=== PATIENT | female | born 1930 | race Caucasian/White ===

== ENCOUNTER 2016-11-23 13:33 | Emergency (ER) | payer OTHER, MEDICARE ==
[~2016-11-23] VITALS: Ht 154.9 cm; Wt 85.0 kg
[~2016-11-23 13:33] MED LIST: ADVAIR 250/501 DISK IH; ASPIR-LOW81 MG PO; ATARAX10 MG PO; Advair HFA 115/21 IH; Aspirin Chewable PO; Benadryl PO; CALCIUM + D3 E1 EACH PO; CLEOCIN300 MG PO; Colace PO; Coumadin dosing per PO; DAILY VALUE1 EACH PO; DELTASONE10 MG PO; DUONEB 2.5-0.5 M3 ML IH; DUONEB3 ML IH; DuoNeb IH; Elavil PO; FERROUS SULFAT325 MG PO; FLEXERIL10 MG PO; FLONASE16 G1 BOTH NARES; FOSAMAX70 MG PO; Flexeril PO; Fosamax PO; GLIPIZIDE5 MG PO; HUMULIN R100 UNITS/ IM; Humibid LA,Mucinex PO; IMODIUM MS REL1 EACH PO; Imdur PO; K-DUR10 ME2 PO; KLOR-CON 1010 ME1 PO; KLOR-CON M1010 MEQ PO; LANTUS 10100 UNITS/ SC; LANTUS 3 M100 UNITS/ SC; LANTUS100 UNIT/1 SQ; LASIX40 MG PO; LOSARTAN POTAS100 MG PO; LOVENOX40 MG/0.4 SC; LOW DOSE ASPIRI81 M1 PO; Lasix PO; Lovenox SC; MACROBID100 MG PO; MOTRIN800 MG PO; MYCOSTATIN 100,60 ML PO; Maalox, Mylanta PO; NOVOLOG 10100 UNITS/ SC; NOVOLOG PE100 UNITS/ SC; OMEPRAZOLE20 MG PO; Oscal 500 w/Vitamin PO; POLYETHYLENE GL17 GM PO; PREDNISONE10 MG PO; PREDNISONE20 MG PO; PREDNISONE50 MG PO; PRILOSEC20 MG PO; PROMETHAZINE HC25 M1 PO; Percocet 5/325,Endoc PO; Protonix PO; RESTASIS 01 DROP/0.4 BOTH EYES; Restasis 0.05% BOTH EYES; SENOKOT S,PE1 TABLET PO; SINGULAIR10 MG PO; Senokot S,Pericolace PO; Singulair PO; THEO-DUR,THEOC300 MG PO; THEOPHYLLINE A300 M1 PO; TRAMADOL HCL50 MG PO; TYLENOL REGULA325 MG PO; Theragran-M,Centrum, PO; Tylenol PR; Tylenol Regular Stre PO; VALACYCLOVIR500 MG PO; VANCOMYCIN HCL1 GM IV; Vitamin-E PO; ZESTRIL,PRINIVI20 MG PO; ZITHROMAX500 MG PO; ZOLPIDEM TARTRAT5 MG PO; Zestril,Prinivil PO; oxyCODONE PO
[2016-11-23 14:40] LABS: HEMATOCRIT 35.6 % (36.0-46.0); MCH 30.9 PG (29.0-34.0); MCHC 32.9 G/DL (30.0-36.0); MCV 93.9 FL (83-99); MEAN PLAT.VOLUME 9.7 uM^3 (9.5-12.4); PLATELET COUNT 218 K/uL (156-360); RBC DIS.WIDTH-CV 13.6 % (11.8-14.6); RBC DIS.WIDTH-SD 44.9 % (39-53); RED BLOOD COUNT 3.79 M/uL (3.80-5.20); WHITE BLOOD COUNT 8.1 K/uL (4.1-10.2)
[2016-11-23 14:48] LABS: CHLORIDE 107 mEq/L (99-109); POTASSIUM 4.2 mEq/L (3.7-5.4); SODIUM 142 mEq/L (136-147)
[2016-11-23 14:50] LABS: GLUCOSE 90 mg/dL (70-99)
[2016-11-23 14:51] LABS: ANION GAP 11 MEQ/L (2-14)
[2016-11-23 14:54] LABS: GFR ESTIMATE (CALCULATED) 38 mL/min/
[2016-11-23 14:55] LABS: UREA NITROGEN (BUN) 26 mg/dL (9-23)
[2016-11-23 14:56] LABS: D-DIMER ELISA 0.29 mg/L FEU (< 0.57)
[2016-11-23] MEDS ORDERED: ULTRAM50 MG PO (15:24)
[2016-11-23] MEDS ORDERED: CLEOCIN300 MG PO (15:24)
[2016-11-23 15:39] VITALS: BP 138/58
== END 2016-11-23 15:50 | disposition home or self-care (01) ==
LOC: EME 13:33
PROVIDERS: Nurse Practitioner Family
DX: L03.116 Cellulitis of left lower limb (principal); E11.9 Type 2 diabetes mellitus without complications; J44.9 Chronic obstructive pulmonary disease, unspecified; I10 Essential (primary) hypertension; K21.9 Gastro-esophageal reflux disease without esophagitis; Z85.828 Personal history of other malignant neoplasm of skin; Z79.4 Long term (current) use of insulin; Z79.82 Long term (current) use of aspirin; Z87.891 Personal history of nicotine dependence
CPT/HCPCS: 80048; 83605; 85027; 85379; 87040; 87070; 87075; 87077; 87186; 87205; 99281; 99284; J7030

== ENCOUNTER 2017-07-13 21:16 | Observation (INO) | payer OTHER, MEDICARE ==
[~2017-07-13] VITALS: Ht 154.9 cm; Wt 86.3 kg
[~2017-07-13 21:16] MED LIST changes: +ULTRAM50 MG PO
[2017-07-13 23:23] LABS: HEMATOCRIT 34.7 % (36.0-46.0); MCHC 32.6 G/DL (30.0-36.0); MCV 95.1 FL (83-99); MEAN PLAT.VOLUME 9.6 uM^3 (9.5-12.4); PLATELET COUNT 198 K/uL (156-360); RBC DIS.WIDTH-CV 13.3 % (11.8-14.6); RBC DIS.WIDTH-SD 46.7 % (39-53); RED BLOOD COUNT 3.65 M/uL (3.80-5.20); WHITE BLOOD COUNT 8.2 K/uL (4.1-10.2)
[2017-07-13 23:29] LABS: INTER. NORMALIZED RATIO 1.1; PROTHROMBIN TIME 12.6 SEC (10.2-12.9)
[2017-07-13 23:31] LABS: PTT 27.4 SEC (25-37)
[2017-07-13 23:44] LABS: TROP-I INTERPRETATION NEGATIVE; TROPONIN-I < 0.01 ng/mL (0.0-0.30)
[2017-07-13 23:45] LABS: CHLORIDE 103 mEq/L (99-109); POTASSIUM 4.3 mEq/L (3.7-5.4); SODIUM 136 mEq/L (136-147)
[2017-07-13 23:47] LABS: GLUCOSE 89 mg/dL (70-99)
[2017-07-13 23:49] LABS: ANION GAP 10 MEQ/L (2-14); TOTAL BILIRUBIN 0.3 mg/dL (0.0-1.0)
[2017-07-13 23:51] LABS: ALKALINE PHOSPHATASE 59 IU/L (3-129); GFR ESTIMATE (CALCULATED) 45 mL/min/
[2017-07-13 23:52] LABS: UREA NITROGEN (BUN) 16 mg/dL (9-23)
[2017-07-13 23:54] LABS: LIPASE 7 U/L (1.0-51.0)
[2017-07-14 01:56] LABS: ADD MIUA? YES; BILIRUBIN NEGATIVE; BLOOD NEGATIVE; COLOR YELLOW ((YELLOW)); GLUCOSE (STRIP) NEGATIVE; KETONES NEGATIVE; LEUKOCYTES SMALL; NITRITE NEGATIVE; PROTEIN (STRIP) NEGATIVE; SPECIFIC GRAVITY 1.011 (1.000-1.030); UROBILINOGEN 0.2 MG/DL (0.2-1.0)
[2017-07-14 02:11] LABS: BACTERIA RARE /HPF; EPITHELIAL CELLS RARE /HPF; MUCUS NONE SEEN /LPF; RED BLOOD CELLS 0-5 /HPF (0-5); UCUL ADDED? YES
[2017-07-14 03:34] VITALS: BP 160/70
[2017-07-14 05:55] LABS: ALKALINE PHOSPHATASE 53 IU/L (3-129); ANION GAP 8 MEQ/L (2-14); CHLORIDE 107 MEQ/L (99-109); GFR ESTIMATE (CALCULATED) 50 mL/min/; GLUCOSE 78 mg/dL (70-99); POTASSIUM 4.9 MEQ/L (3.7-5.4); SAMPLE HEMOLYSIS CHECK 0; SAMPLE ICTERIC CHECK 0; SAMPLE LIPEMIA CHECK 0; SODIUM 137 MEQ/L (136-147); TOTAL BILIRUBIN 0.4 MG/DL (0.0-1.0); UREA NITROGEN (BUN) 14 mg/dL (9-23)
[2017-07-14 06:00] LABS: TROP-I INTERPRETATION NEGATIVE; TROPONIN-I 0.02 ng/mL (0.0-0.30)
[2017-07-14 06:30] LABS: HEMATOCRIT 36.4 % (36.0-46.0); MCH 32.2 PG (29.0-34.0); MCHC 33.5 G/DL (30.0-36.0); MEAN PLAT.VOLUME 10.6 uM^3 (9.5-12.4); PLATELET COUNT 168 K/uL (156-360); RBC DIS.WIDTH-CV 13.6 % (11.8-14.6); RBC DIS.WIDTH-SD 48.1 % (39-53); RED BLOOD COUNT 3.79 M/uL (3.80-5.20); WHITE BLOOD COUNT 7.8 K/uL (4.1-10.2)
[2017-07-14 06:33] LABS: POINT-OF-CARE METER ID UU13113700
[2017-07-14 08:30] VITALS: BP 148/63
[2017-07-14] MEDS ORDERED: LASIX40 MG PO (10:10)
[2017-07-14] MEDS ORDERED: CALCIUM 500 +1 EACH PO (10:12)
[2017-07-14] MEDS ORDERED: VITAMIN B-6100 MG PO (10:12)
[2017-07-14] MEDS ORDERED: ASCORBIC ACID100 MG PO (10:13)
[2017-07-14] MEDS ORDERED: VITAMIN E100 UNIT PO (10:13)
[2017-07-14] MEDS ORDERED: COMPLETE SENIO1 EACH PO (10:14)
[2017-07-14] MEDS ORDERED: ARTIFICIAL TEAR15 M1 BOTH EYES (10:15)
[2017-07-14] MEDS ORDERED: ODOR FREE GARL1 EAC1 PO (10:15)
[2017-07-14] MEDS ORDERED: COZAAR100 MG PO (10:16)
[2017-07-14] MEDS ORDERED: BACTROBAN OINTM22 GM TP (10:22)
[2017-07-14] MEDS ORDERED: SYMBICORT60 INHALAT IH (10:27)
[2017-07-14 11:53] VITALS: BP 139/62
[2017-07-14 12:10] LABS: TROP-I INTERPRETATION NEGATIVE; TROPONIN-I < 0.01 ng/mL (0.0-0.30)
[2017-07-14 12:34] LABS: POINT-OF-CARE METER ID UU13113700
== END 2017-07-14 16:17 | disposition home or self-care (01) ==
LOC: EME 21:16 → ENPENDDIS 07-14 → EDOF 07-14 02:14 → ENRESERV 07-14 02:16 → 5WEST 07-14 03:21
PROVIDERS: Emergency Medicine; Internal Medicine
DX: K52.9 Noninfective gastroenteritis and colitis, unspecified (principal); R07.89 Other chest pain; K21.9 Gastro-esophageal reflux disease without esophagitis; E11.9 Type 2 diabetes mellitus without complications; J44.9 Chronic obstructive pulmonary disease, unspecified; I10 Essential (primary) hypertension; I44.0 Atrioventricular block, first degree; Z79.4 Long term (current) use of insulin; Z85.828 Personal history of other malignant neoplasm of skin; Z92.3 Personal history of irradiation; Z90.710 Acquired absence of both cervix and uterus; Z87.891 Personal history of nicotine dependence; Z88.0 Allergy status to penicillin; Z88.2 Allergy status to sulfonamides; Z88.8 Allergy status to other drugs, medicaments and biological substances
CPT/HCPCS: 74177; 80053; 81003; 82948; 83605; 83630; 83690; 84484; 85027; 85610; 85730; 87086; 87177; 93005; 94640; 99202; 99281; 99285; G0378; G8978 GP CH; G8979 GP CH; G8980 GP CH; G8987 GO CH; G8988 GO CH; G8989 GO CH; J1644; J2405; J7030; S0028

== ENCOUNTER 2017-07-19 17:33 | Emergency (ER) | payer OTHER, MEDICARE ==
[~2017-07-19] VITALS: Ht 154.9 cm; Wt 82.2 kg
[~2017-07-19 17:33] MED LIST changes: +ARTIFICIAL TEAR15 M1 BOTH EYES; +ASCORBIC ACID100 MG PO; +BACTROBAN OINTM22 GM TP; +CALCIUM 500 +1 EACH PO; +COMPLETE SENIO1 EACH PO; +COZAAR100 MG PO; +ODOR FREE GARL1 EAC1 PO; +SYMBICORT60 INHALAT IH; +VITAMIN B-6100 MG PO; +VITAMIN E100 UNIT PO
[2017-07-19 19:17] LABS: EOSINOPHIL (%) 1.1 % (0-5); EOSINOPHIL COUNT 0.1 K/uL (0-0.3); HEMATOCRIT 35.4 % (36.0-46.0); IMMATURE GRANULOCYTE (%) 0.5 % (0.0-0.7); IMMATURE GRANULOCYTE COUNT 0.1 K/uL; INSTRUMENT ABS NEUTROPHIL CT 8.3 K/uL; LYMPHOCYTE COUNT 2.4 K/uL (1.0-2.8); MCHC 33.6 G/DL (30.0-36.0); MCV 92.2 FL (83-99); MEAN PLAT.VOLUME 9.6 uM^3 (9.5-12.4); MONOCYTE (%) 8.6 % (3-12); NEUTROPHIL (%) 69.7 % (45-76); NEUTROPHIL COUNT 8.3 K/uL (1.8-6.4); PLATELET COUNT 215 K/uL (156-360); RBC DIS.WIDTH-CV 13.1 % (11.8-14.6); RBC DIS.WIDTH-SD 43.9 % (39-53); RED BLOOD COUNT 3.84 M/uL (3.80-5.20); WHITE BLOOD COUNT 11.9 K/uL (4.1-10.2)
[2017-07-19 19:28] LABS: CHLORIDE 96 mEq/L (99-109); POTASSIUM 4.4 mEq/L (3.7-5.4); SODIUM 131 mEq/L (136-147)
[2017-07-19 19:30] LABS: GLUCOSE 106 mg/dL (70-99)
[2017-07-19 19:31] LABS: ANION GAP 12 MEQ/L (2-14)
[2017-07-19 19:34] LABS: ALKALINE PHOSPHATASE 74 IU/L (3-129); GFR ESTIMATE (CALCULATED) 45 mL/min/
[2017-07-19 19:35] LABS: UREA NITROGEN (BUN) 18 mg/dL (9-23)
[2017-07-19 19:37] LABS: LIPASE 4 U/L (1.0-51.0)
[2017-07-19 19:39] LABS: TOTAL BILIRUBIN 0.9 mg/dL (0.0-1.0)
[2017-07-19 23:40] LABS: C DIFF TOXIN NEGATIVE (NEGATIVE)
[2017-07-19 23:42] LABS: PROBE CHECK PASS; SPECIMEN PROCESSING CONTROL PASS
[2017-07-19] MEDS ORDERED: BENTYL20 MG PO (23:47)
[2017-07-19] MEDS ORDERED: IMODIUM A-D2 M2 PO (23:47)
[2017-07-20 00:25] VITALS: BP 150/73
== END 2017-07-20 00:32 | disposition home or self-care (01) ==
LOC: EME 17:33
PROVIDERS: Emergency Medicine
DX: R10.30 Lower abdominal pain, unspecified (principal); R19.7 Diarrhea, unspecified; E11.9 Type 2 diabetes mellitus without complications; K21.9 Gastro-esophageal reflux disease without esophagitis; I50.9 Heart failure, unspecified; J44.9 Chronic obstructive pulmonary disease, unspecified; I10 Essential (primary) hypertension; Z79.4 Long term (current) use of insulin; Z79.82 Long term (current) use of aspirin; Z88.0 Allergy status to penicillin; Z88.8 Allergy status to other drugs, medicaments and biological substances; Z87.891 Personal history of nicotine dependence; Z85.828 Personal history of other malignant neoplasm of skin
CPT/HCPCS: 71010; 80053; 81003; 83690; 85025; 87493; 93005; 99281; 99285; J2405; J7030

== ENCOUNTER 2017-12-14 13:24 | Emergency (ER) | payer OTHER, MEDICARE ==
[~2017-12-14] VITALS: Ht 154.9 cm; Wt 77.2 kg
[~2017-12-14 13:24] MED LIST changes: +BENTYL20 MG PO; +IMODIUM A-D2 M2 PO
[2017-12-14 14:52] LABS: HEMATOCRIT 34.2 % (36.0-46.0); HEMOGLOBIN 11.4 G/DL (11.9-15.5); MCH 31.8 PG (29.0-34.0); MCHC 33.3 G/DL (30.0-36.0); MCV 95.3 FL (83-99); PLATELET COUNT 218 K/uL (156-360); RBC DIS.WIDTH-CV 13.6 % (11.8-14.6); RBC DIS.WIDTH-SD 47.7 % (39-53); RED BLOOD COUNT 3.59 M/uL (3.80-5.20); WHITE BLOOD COUNT 7.7 K/uL (4.1-10.2)
[2017-12-14 15:06] LABS: CHLORIDE 104 mEq/L (99-109); POTASSIUM 4.4 mEq/L (3.7-5.4); SODIUM 140 mEq/L (136-147)
[2017-12-14 15:07] LABS: GLUCOSE 90 mg/dL (70-99)
[2017-12-14 15:11] LABS: CREATININE 1.2 mg/dL (0.6-1.3); GFR ESTIMATE (CALCULATED) 45 mL/min/
[2017-12-14 15:12] LABS: UREA NITROGEN (BUN) 18 mg/dL (9-23)
[2017-12-14] MEDS ORDERED: PREDNISONE20 MG PO (19:27)
[2017-12-14] MEDS ORDERED: MOTRIN600 MG PO (19:30)
[2017-12-14 20:06] VITALS: BP 166/69
== END 2017-12-14 20:12 | disposition home or self-care (01) ==
LOC: EME 13:24
PROVIDERS: Physician Assistant
DX: J06.9 Acute upper respiratory infection, unspecified (principal); J20.9 Acute bronchitis, unspecified; J02.9 Acute pharyngitis, unspecified; H65.01 Acute serous otitis media, right ear; B34.9 Viral infection, unspecified; I50.9 Heart failure, unspecified; I11.0 Hypertensive heart disease with heart failure; E11.9 Type 2 diabetes mellitus without complications; K21.9 Gastro-esophageal reflux disease without esophagitis; Z85.828 Personal history of other malignant neoplasm of skin; Z79.4 Long term (current) use of insulin; Z79.82 Long term (current) use of aspirin; Z88.5 Allergy status to narcotic agent; Z88.2 Allergy status to sulfonamides; Z88.0 Allergy status to penicillin; Z87.891 Personal history of nicotine dependence
CPT/HCPCS: 71046; 80048; 83880; 85027; 87502; 87631; 87651 90; 93005; 94640; 99202; 99281; 99285; J2930; J7512

== ENCOUNTER 2017-12-21 09:36 | Emergency (ER) | payer OTHER, MEDICARE ==
[~2017-12-21] VITALS: Ht 154.9 cm; Wt 81.7 kg
[~2017-12-21 09:36] MED LIST changes: +MOTRIN600 MG PO
[2017-12-21 11:18] LABS: BASOPHIL (%) 0.3 % (0-1); BASOPHIL COUNT 0.1 K/uL (0-0.1); EOSINOPHIL (%) 2.2 % (0-5); EOSINOPHIL COUNT 0.4 K/uL (0-0.3); HEMATOCRIT 41.7 % (36.0-46.0); IMMATURE GRANULOCYTE (%) 2.1 % (0.0-0.7); LYMPHOCYTE (%) 28.7 % (15-42); LYMPHOCYTE COUNT 5.5 K/uL (1.0-2.8); MCH 31.5 PG (29.0-34.0); MCHC 32.6 G/DL (30.0-36.0); MCV 96.5 FL (83-99); MONOCYTE (%) 6.4 % (3-12); MONOCYTE COUNT 1.2 K/uL (0-0.8); NEUTROPHIL (%) 60.3 % (45-76); NEUTROPHIL COUNT 11.5 K/uL (1.8-6.4); PLATELET COUNT 201 K/uL (156-360); RBC DIS.WIDTH-CV 14.4 % (11.8-14.6); RBC DIS.WIDTH-SD 51.1 % (39-53); WHITE BLOOD COUNT 19.1 K/uL (4.1-10.2)
[2017-12-21 11:19] LABS: HEMOGLOBIN 13.6 G/DL (11.9-15.5); RED BLOOD COUNT 4.32 M/uL (3.80-5.20)
[2017-12-21 11:23] LABS: INTER. NORMALIZED RATIO 1.1
[2017-12-21 11:28] LABS: CHLORIDE 103 mEq/L (99-109); SODIUM 138 mEq/L (136-147)
[2017-12-21 11:30] LABS: GLUCOSE 105 mg/dL (70-99)
[2017-12-21 11:34] LABS: CREATININE 1.3 mg/dL (0.6-1.3); GFR ESTIMATE (CALCULATED) 41 mL/min/
[2017-12-21 11:36] LABS: UREA NITROGEN (BUN) 31 mg/dL (9-23)
[2017-12-21 11:38] LABS: TROP-I INTERPRETATION NEGATIVE; TROPONIN-I < 0.01 ng/mL (0.0-0.30)
[2017-12-21 13:14] LABS: APPEARANCE CLEAR ((CLEAR)); BILIRUBIN NEGATIVE; BLOOD NEGATIVE; COLOR STRAW ((YELLOW)); GLUCOSE (STRIP) NEGATIVE; KETONES NEGATIVE; LEUKOCYTES NEGATIVE; NITRITE NEGATIVE; PROTEIN (STRIP) NEGATIVE; SPECIFIC GRAVITY 1.006 (1.000-1.030); UCUL ADDED? NO; UROBILINOGEN 0.2 MG/DL (0.2-1.0)
[2017-12-21 14:24] LABS: TROP-I INTERPRETATION NEGATIVE; TROPONIN-I 0.01 ng/mL (0.0-0.30)
[2017-12-21] MEDS ORDERED: ELIQUIS5 MG PO (15:46)
[2017-12-21 16:47] VITALS: BP 126/54
== END 2017-12-21 16:48 | disposition home or self-care (01) ==
LOC: EME 09:36
PROVIDERS: Emergency Medicine
DX: J44.1 Chronic obstructive pulmonary disease with (acute) exacerbation (principal); I48.91 Unspecified atrial fibrillation; I45.10 Unspecified right bundle-branch block; I44.0 Atrioventricular block, first degree; I49.1 Atrial premature depolarization; E11.9 Type 2 diabetes mellitus without complications; K21.9 Gastro-esophageal reflux disease without esophagitis; I11.0 Hypertensive heart disease with heart failure; I50.9 Heart failure, unspecified; Z79.82 Long term (current) use of aspirin; Z79.4 Long term (current) use of insulin; Z87.891 Personal history of nicotine dependence; Z86.73 Personal history of transient ischemic attack (TIA), and cerebral infarction without residual deficits; Z85.828 Personal history of other malignant neoplasm of skin; Z90.89 Acquired absence of other organs; Z88.1 Allergy status to other antibiotic agents; Z88.5 Allergy status to narcotic agent; Z88.2 Allergy status to sulfonamides; Z88.0 Allergy status to penicillin; Z88.8 Allergy status to other drugs, medicaments and biological substances
CPT/HCPCS: 71045; 80048; 81003; 83880; 84484; 85025; 85610; 85730; 93005; 94640; 99281; 99285; J2930; J7030

== ENCOUNTER 2018-02-10 18:08 | Emergency (ER) | payer OTHER, MEDICARE ==
[~2018-02-10] VITALS: Ht 154.9 cm; Wt 72.7 kg
[~2018-02-10 18:08] MED LIST changes: +ELIQUIS5 MG PO
[2018-02-10 19:20] LABS: APPEARANCE SL.HAZY ((CLEAR)); BILIRUBIN NEGATIVE; BLOOD NEGATIVE; COLOR YELLOW ((YELLOW)); GLUCOSE (STRIP) NEGATIVE; KETONES NEGATIVE; LEUKOCYTES MODERATE; NITRITE NEGATIVE; PROTEIN (STRIP) NEGATIVE; SPECIFIC GRAVITY 1.011 (1.000-1.030); UROBILINOGEN 0.2 MG/DL (0.2-1.0)
[2018-02-10 19:25] LABS: HEMATOCRIT 32.7 % (36.0-46.0); MCH 32.1 PG (29.0-34.0); MCHC 33.6 G/DL (30.0-36.0); MCV 95.3 FL (83-99); PLATELET COUNT 231 K/uL (156-360); RBC DIS.WIDTH-CV 13.2 % (11.8-14.6); RBC DIS.WIDTH-SD 45.1 % (39-53); RED BLOOD COUNT 3.43 M/uL (3.80-5.20); WHITE BLOOD COUNT 8.2 K/uL (4.1-10.2)
[2018-02-10 19:37] LABS: ALBUMIN 3.4 g/dL (3.2-4.8); CHLORIDE 109 mEq/L (99-109); SODIUM 141 mEq/L (136-147)
[2018-02-10 19:39] LABS: GLUCOSE 93 mg/dL (70-99)
[2018-02-10 19:40] LABS: TOTAL PROTEIN 5.8 g/dL (6.4-8.3)
[2018-02-10 19:41] LABS: TOTAL BILIRUBIN 0.4 mg/dL (0.0-1.0)
[2018-02-10 19:43] LABS: ALKALINE PHOSPHATASE 71 IU/L (3-129); CREATININE 1.4 mg/dL (0.6-1.3); GFR ESTIMATE (CALCULATED) 38 mL/min/
[2018-02-10 19:44] LABS: UREA NITROGEN (BUN) 32 mg/dL (9-23)
[2018-02-10 19:45] LABS: AST (GOT) 18 IU/L (2-34)
[2018-02-10 19:46] LABS: ALT (GPT) 12 IU/L (3-49)
[2018-02-10 20:02] LABS: BACTERIA RARE /HPF; EPITHELIAL CELLS RARE /HPF; HYALINE CASTS 0-5 /LPF; MUCUS TRACE /LPF; RED BLOOD CELLS 0-5 /HPF (0-5); UCUL ADDED? YES; WHITE BLOOD CELLS 20-30 /HPF (0-5)
[2018-02-10 21:26] LABS: LIPASE 2 U/L (1.0-51.0)
[2018-02-10 23:45] LABS: BASOPHIL (%) 1.2 % (0-1); BASOPHIL COUNT 0.1 K/uL (0-0.1); EOSINOPHIL (%) 6.2 % (0-5); EOSINOPHIL COUNT 0.5 K/uL (0-0.3); IMMATURE GRANULOCYTE (%) 0.2 % (0.0-0.7); LYMPHOCYTE (%) 33.6 % (15-42); LYMPHOCYTE COUNT 2.8 K/uL (1.0-2.8); MONOCYTE (%) 7.5 % (3-12); MONOCYTE COUNT 0.6 K/uL (0-0.8); NEUTROPHIL (%) 51.3 % (45-76); NEUTROPHIL COUNT 4.2 K/uL (1.8-6.4)
[2018-02-11] MEDS ORDERED: ZOFRAN ODT4 MG PO (00:06)
[2018-02-11] MEDS ORDERED: BENTYL20 MG PO (00:06)
[2018-02-11 00:33] VITALS: BP 128/76
== END 2018-02-11 00:40 | disposition home or self-care (01) ==
LOC: EME 18:08
DX: K52.9 Noninfective gastroenteritis and colitis, unspecified (principal); J44.9 Chronic obstructive pulmonary disease, unspecified; I11.0 Hypertensive heart disease with heart failure; I50.9 Heart failure, unspecified; K21.9 Gastro-esophageal reflux disease without esophagitis; Z85.828 Personal history of other malignant neoplasm of skin; E11.9 Type 2 diabetes mellitus without complications; Z79.4 Long term (current) use of insulin; Z79.82 Long term (current) use of aspirin; Z88.5 Allergy status to narcotic agent; Z88.2 Allergy status to sulfonamides; Z88.0 Allergy status to penicillin; Z87.891 Personal history of nicotine dependence
CPT/HCPCS: 74177; 80053; 81003; 83605; 83690; 85025; 85027; 87086 GA; 87493; 87506; 99281; 99285; J2405; J7030